=== PATIENT | female | born 1945 | race Caucasian/White ===

== ENCOUNTER 2017-09-16 19:48 | Emergency (ER) | payer MEDICARE ==
[~2017-09-16] VITALS: Ht 157.5 cm; Wt 68.0 kg
--- NOTE | 2017-09-16 20:19 | NUR ---
PT IN BED SPEAKING LOUDLY ON CELL PHONE TO CONCERNED FAMILY MEMBER. MD KILPATRICK HAS BEEN CONDUCTED. AWAITING MD ORDERS.
--- NOTE | 2017-09-16 20:31 | NUR ---
Patient discharged to home in stable conditon. Written and verbal after care instructions given. Patient verbalizes understanding of instructions. Patient able to ambulate unassisted with steady gait.
[2017-09-16 20:42] VITALS: BP 145/132
== END 2017-09-16 20:31 | disposition home or self-care (01) ==
LOC: ER 19:55
DX: B86 Scabies (principal); B85.0 Pediculosis due to Pediculus humanus capitis; E78.5 Hyperlipidemia, unspecified; I10 Essential (primary) hypertension; Z90.710 Acquired absence of both cervix and uterus
CPT/HCPCS: A4663